=== PATIENT | male | born 1975 | race Two or more races ===

== ENCOUNTER 2021-10-26 08:38 | Outpatient (CLI) | payer OTHER | END 2021-10-26 08:50 | disposition home or self-care (01) | LOC: SONOGRAMA 08:38 | PROVIDERS: ATTEND Internal Medicine Nephrology | DX: N18.2 Chronic kidney disease, stage 2 (mild) (principal); E11.21 Type 2 diabetes mellitus with diabetic nephropathy ==

== ENCOUNTER 2023-06-28 08:59 | Outpatient (CLI) | payer OTHER | END 2023-06-28 09:11 | disposition home or self-care (01) | LOC: MRI 08:59 | DX: M25.511 Pain in right shoulder (principal) | CPT/HCPCS: 73221 ==